=== PATIENT | female | born 1965 | race Hispanic/Latino ===

== ENCOUNTER 2019-11-05 07:57 | Day surgery (SDC) | payer BC ==
[~2019-11-05] VITALS: Ht 170.2 cm; Wt 95.3 kg
[~2019-11-05 07:57] MED LIST: SODIUM CHLORIDE 0.9% 1000ML 1,000 ML IV ONE
[2019-11-05] MEDS ORDERED: IPRATROPIUM/ALBUTEROL SULFATE 3 ML SOLUTION IH ONE (09:01)
[2019-11-05 09:10] VITALS: BP 138/95
[2019-11-05] MEDS ORDERED: PROPOFOL 10 MG/ML 20ML VIAL IV ONE (09:20)
[2019-11-05] MEDS ORDERED: LOSA100T58 PO (09:22)
[2019-11-05] MEDS ORDERED: LINA5TAB PO (09:22)
[2019-11-05] MEDS ORDERED: HYDR25TA PO (09:22)
[2019-11-05] MEDS ORDERED: ALBUHFA IH (09:22)
[2019-11-05] MEDS ORDERED: MONT10TA24 PO (09:22)
[2019-11-05] MEDS ORDERED: DAPA1TAB3 PO (09:22)
[2019-11-05 09:35] VITALS: BP 105/59
[2019-11-05 10:14] VITALS: BP 119/55
== END 2019-11-05 10:20 | disposition home or self-care (01) ==
LOC: ENDO 07:57 → DAH 07:57 → ENDO 10:20
PROVIDERS: ATTEND Internal Medicine Gastroenterology
DX: K29.70 Gastritis, unspecified, without bleeding (principal); K21.0 Gastro-esophageal reflux disease with esophagitis; F41.9 Anxiety disorder, unspecified; I10 Essential (primary) hypertension; E11.9 Type 2 diabetes mellitus without complications; K21.9 Gastro-esophageal reflux disease without esophagitis; J45.909 Unspecified asthma, uncomplicated; Z79.899 Other long term (current) drug therapy; Z90.710 Acquired absence of both cervix and uterus; Z90.49 Acquired absence of other specified parts of digestive tract; Z98.890 Other specified postprocedural states; Z83.3 Family history of diabetes mellitus; Z82.49 Family history of ischemic heart disease and other diseases of the circulatory system; Z80.0 Family history of malignant neoplasm of digestive organs
CPT/HCPCS: 43239; 82948 ×2; 94640; A4215; A4221; A4222; A4223; A4606; A4620; A4663; J2704; J7030